=== PATIENT | female | born 1975 | race Caucasian/White ===

== ENCOUNTER 2018-04-26 22:59 | Emergency (ER) | payer BC ==
[~2018-04-26] VITALS: Ht 157.5 cm; Wt 99.8 kg
[2018-04-26] MEDS ORDERED: NOHOMEMEDICATIONS (23:11)
[2018-04-27] MEDS ORDERED: NORCO 5-325 TA1 EAC1 PO (00:26)
[2018-04-27 00:45] VITALS: BP 132/75
== END 2018-04-27 00:45 | disposition home or self-care (01) ==
LOC: M.ERS 22:59
DX: S61.412A Laceration without foreign body of left hand, initial encounter (principal); W26.0XXA Contact with knife, initial encounter; Y93.89 Activity, other specified; Y92.89 Other specified places as the place of occurrence of the external cause; Y99.8 Other external cause status

== ENCOUNTER → 2019-12-01 | Outpatient (CLI) | payer BC ==
[~2019-12-01] MED LIST: NOHOMEMEDICATIONS; NORCO 5-325 TA1 EAC1 PO
== END ==
LOC: M.RAD 16:30
DX: Z12.31 Encounter for screening mammogram for malignant neoplasm of breast (principal)